=== PATIENT | female | born 2000 | race Caucasian/White ===

== ENCOUNTER 2024-01-09 11:38 | Emergency (ER) | payer OTHER, SELFPAY ==
[2024-01-09] VITALS (26 sets, daily range): BP systolic 116–170; BP diastolic 57–96; PULSE 76–127; RESP 12–28; TEMP 37.1; O2SAT 96–99; BMI 19.5
--- NOTE | 2024-01-09 11:49 | DI.RAD.S_ITS ---
PROCEDURE: XR CHEST 1V INDICATIONS: chest pain TECHNIQUE: One view of the chest was acquired. COMPARISON: None. FINDINGS: Surgical changes and devices: None. Lungs and pleura: Lungs are clear. No pleural effusions or pneumothorax. Mediastinum: Mediastinal contours appear normal. Heart size is normal. Bones and chest wall: No suspicious bony lesions. Overlying soft tissues appear unremarkable. IMPRESSION: No acute cardiopulmonary abnormality is seen. Dictated by: Torri Silva M.D. on 01/09/2024 at 15:33 Approved by: Torri Silva M.D. on 01/09/2024 at 15:35
--- NOTE | 2024-01-09 11:54 | EKG_ITS ---
[address] [address] Test Date: 2024-01-09 Pat Name: Ora Arizmendi Department: Room: Gender: Female Sign Writer Hand: MARYLOU : 2000 Requested By: Order Number: [id number] Reading MD: Anam Putnam MD Measurements Intervals [place] Rate: 103 P: 49 W[place]: 152 QRS: -24 QRSD: 90 T: 46 QT: 378 QTc: 495 Interpretive Statements Sinus tachycardia Electronically Signed On 01-10-2024 7:37:21 PDT by Anam Putnam MD
[2024-01-09 12:14] LABS: Add Manual Diff / Slide Review NO; Basophils Absolute Auto 0 /uL (0-100); Basophils Percent Auto 0.5 % (0-2); Eosinophils Absolute Auto 200 /uL (0-450); Eosinophils Percent Auto 3.8 % (2-4); Hematocrit 39.5 % (36-46); Hemoglobin 13.2 g/dL (12.0-16.0); Lymphocytes Absolute Auto 1700 /uL (1100-4500); Lymphocytes Percent Auto 39.1 % (25-40); Mean Corpuscular HGB Conc 33.3 % (30-36); Mean Corpuscular Hemoglobin 26.2 PG (26-34); Mean Corpuscular Volume 78.8 fL (80-100); Monocytes Absolute Auto 400 /uL (0-900); Monocytes Percent Auto 9.4 % (3-14); Neutrophils Absolute Auto 2000 /uL (1500-7000); Neutrophils Percent Auto 47.2 % (50-75); Platelet Count 172 X10^3/uL (150-400); Red Blood Cell Count 5.02 X10^6/uL (4.0-5.2); Red Cell Distribution Width 13.3 % (11.6-14.8); White Blood Cell Count 4.3 X10^3/uL (4.5-11.0)
[2024-01-09 12:16] LABS: Prothrombin Time 11.2 SECONDS (9.4-12.5)
[2024-01-09 12:18] LABS: PTT Partial Thromboplastin Tim 40 SECONDS (25.1-36.5)
[2024-01-09 12:22] LABS: Alanine Aminotransferase 39 IU/L (<35); Albumin 4.3 g/dL (3.5-5.0); Albumin Globulin Ratio 1.7 (1.0-2.8); Alkaline Phosphatase 96 U/L (38-126); Aspartate Aminotransferase 32 IU/L (14-36); BUN Creatinine Ratio 31.4 (6-22); Bilirubin Total 0.5 mg/dL (0.2-1.3); Blood Urea Nitrogen 11 mg/dL (7-17); C-Reactive Protein Quant < 0.5 mg/dL (<1.0); Calcium 9.4 mg/dL (8.4-10.2); Carbon Dioxide 23 mmol/L (22-32); Chloride 109 mmol/L (98-107); Creatine Kinase 39 U/L (30-135); Estimated Glomerular Filt Rate > 60 mL/min (>60); Globulin 2.6 g/dL (1.7-4.1); Glucose 99 mg/dL (70-100); HEMOLYSIS < 15 (0-50); Lipase 106 U/L (23-300); Magnesium 1.8 mg/dL (1.6-2.3); Sodium 139 mmol/L (137-145); Total Protein 6.9 g/dL (6.3-8.2)
[2024-01-09 12:31] LABS: Erythrocyte Sedimentation Rate 4 MM/HR (0-20); NT-proBNP (BNP-Adult 18+) 164 pg/mL (<125); Troponin I < 0.012 ng/mL (0.01-0.034)
--- NOTE | 2024-01-09 12:46 | ED.RECABL ---
HPI - Recheck/Abnormal Lab/Rx <Sheng Espinoza MD - Last Filed: 01/10/24 11:56> General Chief Complaint: Recheck/Abnormal Lab/Rx Stated Complaint: cardiac issues sent by [facility] Time Seen by Provider: 01/09/24 12:36 Source: patient Mode of arrival: Ambulatory History of Present Illness HPI narrative: Patient has history of Graves disease. Has been off of methimazole and propranolol for the past 4 years under the guidance of her provider. She has been doing well. However in the last 3 weeks she has had some dizziness and palpitations and feeling very tired. She has appointment with her provider in 2 weeks for this. No prior history of anemia. Denies . Heart rate will increase with any kind of movement she states. She has had some weight loss as well. Related Data Home Medications Medication Instructions Recorded Confirmed No Known Home Medications 01/09/24 01/09/24 Allergies Allergy/AdvReac Type Severity Reaction Status Date / Time ketorolac [From Toradol] Allergy Severe Anaphylaxis Verified 01/09/24 13:48 Review of Systems <Sheng Espinoza MD - Last Filed: 01/10/24 11:56> Review of Systems Narrative: GENERAL: negative chills, positive fatigue, malaise, negative fever, sweats. HEENT: negative sinus pain, ear pain, sore throat RESPIRATORY: negative dyspnea, cough CARDIOVASCULAR: negative chest pain, positive palpitations GASTROINTESTINAL: negative nausea, vomiting, abdominal pain : negative dysuria, frequency, hematuria MUSCULOSKELETAL: negative muscle or bony pain SKIN: negative rash, skin lesions NEUROLOGIC: negative weakness, numbness, positive dizziness ROS Unobtainable: All systems reviewed & are unremarkable except as noted in HPI and below Patient History <Sheng Espinoza MD - Last Filed: 01/10/24 11:56> Medical History IUD (intrauterine device) in place Social History Smoking Status: Current some day smoker Smoking Status: Current some day smoker alcohol intake frequency: other Alcohol type: other Substance Use Type: does not use Exam <Sheng Espinoza MD - Last Filed: 01/10/24 11:56> Narrative Exam Narrative: GENERAL: in no distress, not toxic not dyspneic HEAD: Normocephalic. EYES: Pupils equal round ENT: Mucous membranes moist. NECK: Trachea midline. No thyromegaly CARDIOVASCULAR: Regular rate and rhythm, tachycardia RESPIRATORY: Clear to auscultation. Breath sounds equal bilaterally. No wheezes, rales, or rhonchi. GASTROINTESTINAL: Abdomen soft, non-tender EXTREMITIES: No gross deformities. BACK: No flank tenderness. NEURO: AOx4. SKIN: Warm and dry PSYCH: Not anxious, is cooperative Initial Vital Signs Initial Vital Signs: Vital Signs Temperature 98.8 F 01/09/24 11:44 Pulse Rate 112 H 01/09/24 11:44 Respiratory Rate 16 01/09/24 11:44 Blood Pressure 120/79 01/09/24 11:44 Pulse Oximetry 98 01/09/24 11:44 Oxygen Delivery Method Room Air 01/09/24 11:44 <Yesenia Marquez DO - Last Filed: 01/10/24 06:43> Initial Vital Signs Initial Vital Signs: Vital Signs Temperature 98.8 F 01/09/24 11:44 Pulse Rate 112 H 01/09/24 11:44 Respiratory Rate 16 01/09/24 11:44 Blood Pressure 120/79 01/09/24 11:44 Pulse Oximetry 98 01/09/24 11:44 Oxygen Delivery Method Room Air 01/09/24 11:44 Course <Sheng Espinoza MD - Last Filed: 01/10/24 11:56> Orders Ordered: Discontinued Medications Sodium Chloride (Normal Saline 0.9%) 1,000 mls @ 1,000 mls/hr IV BOLUS ONE Stop: 01/09/24 13:45 Last Infusion: 01/09/24 13:57 Dose: Infused Documented By: Admin: 01/09/24 12:48 Dose: 1,000 mls/hr Documented By: TEMO Sodium Chloride (Normal Saline 0.9%) 1,000 mls @ 150 mls/hr IV CONT USHA Last Infusion: 01/10/24 03:09 Dose: Infused Documented By: Admin: 01/09/24 20:12 Dose: 150 mls/hr Documented By: LB Sodium Chloride (Normal Saline 0.9%) 1,000 mls @ 150 mls/hr IV CONT USHA Last Admin: 01/10/24 03:15 Dose: 150 mls/hr Documented By: LB Lorazepam (Lorazepam 2 Mg/Ml Inj) 0.5 mg IV NOW ONE Stop: 01/09/24 17:58 Last Admin: 01/09/24 18:07 Dose: 0.5 mg Documented By: LISANDRO Meclizine HCl (Meclizine Hcl 12.5 Mg Tablet) 25 mg PO NOW ONE Stop: 01/10/24 07:19 Last Admin: 01/10/24 07:23 Dose: 25 mg Documented By: LISANDRO Propranolol HCl (Propranolol 10 Mg Tablet) 80 mg PO NOW ONE Stop: 01/09/24 18:09 Last Admin: 01/09/24 18:16 Dose: 80 mg Documented By: LISANDRO Propranolol HCl (Propranolol 10 Mg Tablet) 80 mg PO Q6H USHA Last Admin: 01/10/24 07:24 Dose: 80 mg Documented By: Admin: 01/10/24 00:59 Dose: 80 mg Documented By: LB Vital Signs Vital signs: Vital Signs - 8 hr 01/10/24 04:00 01/10/24 04:00 01/10/24 04:00 Pulse Rate 77 77 Respiratory Rate 18 19 Blood Pressure 103/54 L 103/54 L Pulse Oximetry 98 Oxygen Delivery Method Room Air 01/10/24 04:30 01/10/24 04:30 01/10/24 04:30 Pulse Rate 84 84 Respiratory Rate 16 21 Blood Pressure 98/54 L 98/54 L Pulse Oximetry 97 Oxygen Delivery Method Room Air 01/10/24 05:00 01/10/24 05:00 01/10/24 05:00 Pulse Rate 87 87 Respiratory Rate 14 17 Blood Pressure 105/65 105/65 Pulse Oximetry 98 Oxygen Delivery Method Room Air 01/10/24 05:30 01/10/24 05:30 01/10/24 06:00 Pulse Rate 82 80 Respiratory Rate 14 19 Blood Pressure 107/62 Pulse Oximetry Oxygen Delivery Method 01/10/24 06:00 01/10/24 06:30 01/10/24 06:30 Pulse Rate 82 87 Respiratory Rate 16 29 H Blood Pressure 106/60 109/70 Pulse Oximetry 97 Oxygen Delivery Method Room Air 01/10/24 07:00 01/10/24 07:00 01/10/24 07:11 Pulse Rate 93 H Respiratory Rate 18 Blood Pressure 117/63 104/65 Pulse Oximetry 98 Oxygen Delivery Method <Yesenia Marquez, - Last Filed: 01/10/24 06:43> Orders Ordered: Discontinued Medications Sodium Chloride (Normal Saline 0.9%) 1,000 mls @ 1,000 mls/hr IV BOLUS ONE Stop: 01/09/24 13:45 Last Infusion: 01/09/24 13:57 Dose: Infused Documented By: Admin: 01/09/24 12:48 Dose: 1,000 mls/hr Documented By: TEMO Sodium Chloride (Normal Saline 0.9%) 1,000 mls @ 150 mls/hr IV CONT USHA Last Infusion: 01/10/24 03:09 Dose: Infused Documented By: Admin: 01/09/24 20:12 Dose: 150 mls/hr Documented By: LB Sodium Chloride (Normal Saline 0.9%) 1,000 mls @ 150 mls/hr IV CONT USHA Last Admin: 01/10/24 03:15 Dose: 150 mls/hr Documented By: LB Lorazepam (Lorazepam 2 Mg/Ml Inj) 0.5 mg IV NOW ONE Stop: 01/09/24 17:58 Last Admin: 01/09/24 18:07 Dose: 0.5 mg Documented By: LISANDRO Meclizine HCl (Meclizine Hcl 12.5 Mg Tablet) 25 mg PO NOW ONE Stop: 01/10/24 07:19 Last Admin: 01/10/24 07:23 Dose: 25 mg Documented By: LISANDRO Propranolol HCl (Propranolol 10 Mg Tablet) 80 mg PO NOW ONE Stop: 01/09/24 18:09 Last Admin: 01/09/24 18:16 Dose: 80 mg Documented By: LISANDRO Propranolol HCl (Propranolol 10 Mg Tablet) 80 mg PO Q6H [facility] Last Admin: 01/10/24 07:24 Dose: 80 mg Documented By: Admin: 01/10/24 00:59 Dose: 80 mg Documented By: LB Vital Signs Vital signs: Vital Signs - 8 hr 01/10/24 04:00 01/10/24 04:00 01/10/24 04:00 Pulse Rate 77 77 Respiratory Rate 18 19 Blood Pressure 103/54 L 103/54 L Pulse Oximetry 98 Oxygen Delivery Method Room Air 01/10/24 04:30 01/10/24 04:30 01/10/24 04:30 Pulse Rate 84 84 Respiratory Rate 16 21 Blood Pressure 98/54 L 98/54 L Pulse Oximetry 97 Oxygen Delivery Method Room Air 01/10/24 05:00 01/10/24 05:00 01/10/24 05:00 Pulse Rate 87 87 Respiratory Rate 14 17 Blood Pressure 105/65 105/65 Pulse Oximetry 98 Oxygen Delivery Method Room Air 01/10/24 05:30 01/10/24 05:30 01/10/24 06:00 Pulse Rate 82 80 Respiratory Rate 14 19 Blood Pressure 107/62 Pulse Oximetry Oxygen Delivery Method 01/10/24 06:00 01/10/24 06:30 01/10/24 06:30 Pulse Rate 82 87 Respiratory Rate 16 29 H Blood Pressure 106/60 109/70 Pulse Oximetry 97 Oxygen Delivery Method Room Air 01/10/24 07:00 01/10/24 07:00 01/10/24 07:11 Pulse Rate 93 H Respiratory Rate 18 Blood Pressure 117/63 104/65 Pulse Oximetry 98 Oxygen Delivery Method MDM - Recheck/Abnormal Lab/Rx <Sheng Espinoza MD - Last Filed: 01/10/24 11:56> Lab Data 01/09/24 11:59 01/09/24 11:59 Labs: Lab Results 01/09/24 Range/Units 11:59 WBC 4.3 L (4.5-11.0) X10^3/uL RBC 5.02 (4.0-5.2) X10^6/uL Hgb 13.2 (12.0-16.0) g/dL Hct 39.5 (36-46) % MCV 78.8 L (80-100) fL MCH 26.2 (26-34) PG MCHC 33.3 (30-36) % RDW 13.3 (11.6-14.8) % Plt Count 172 (150-400) X10^3/uL Neut % (Auto) 47.2 L (50-75) % Lymph % (Auto) 39.1 (25-40) % [place]royo % (Auto) 9.4 (3-14) % Eos % (Auto) 3.8 (2-4) % Baso % (Auto) 0.5 (0-2) % Neut # (Auto) 2000 (4993-9732) /uL Lymph # (Auto) 1700 (5201-4372) /uL [place] # (Auto) 400 (0-900) /uL Eos # (Auto) 200 (0-450) /uL Baso # (Auto) 0 (0-100) /uL ESR 4 (0-20) MM/HR PT 11.2 (9.4-12.5) SECONDS INR 1.0 (0.9-1.3) APTT 40 H (25.1-36.5) SECONDS D-Dimer 1071 H (<500) ng/ml Sodium 139 (137-145) mmol/L Potassium 4.0 (3.4-5.1) mmol/L Chloride 109 H (98-107) mmol/L Carbon Dioxide 23 (22-32) mmol/L BUN 11 (7-17) mg/dL Creatinine 0.35 L (0.52-1.04) mg/dL Estimated GFR > 60 (>60) mL/min BUN/Creatinine Ratio 31.4 H (6-22) Glucose 99 (70-100) mg/dL Calcium 9.4 (8.4-10.2) mg/dL Magnesium 1.8 (1.6-2.3) mg/dL Total Bilirubin 0.5 (0.2-1.3) mg/dL AST 32 (14-36) IU/L ALT 39 H (<35) IU/L Alkaline Phosphatase 96 (38-126) U/L Total Creatine Kinase 39 (30-135) U/L Troponin I < 0.012 (0.01-0.034) ng/mL C-Reactive Protein < 0.5 (<1.0) mg/dL NT-Pro-B Natriuret Pep 164 H (<125) pg/mL Total Protein 6.9 (6.3-8.2) g/dL Albumin 4.3 (3.5-5.0) g/dL Globulin 2.6 (1.7-4.1) g/dL Albumin/Globulin Ratio 1.7 (1.0-2.8) Lipase 106 (23-300) U/L TSH < 0.02 L (0.47-4.68) uIU/mL Free T4 4.56 H (0.78-2.19) ng/dL Point of Care Testing Test Results Negative Imaging Data Chest x-ray: Radiologist's Impression: [address] [address] XRay Report Signed Patient: Ora Arizmendi MR#: [id number] : 2000 Acct:[id number] Age/Sex: 23 / F Date of Service: 01/09/24 Loc: ED Accession Number: [id number] Procedure: XR chest 1V Ordering Provider: Sheng Espinoza MD PROCEDURE: XR CHEST 1V INDICATIONS: chest pain TECHNIQUE: One view of the chest was acquired. COMPARISON: None. FINDINGS: Surgical changes and devices: None. Lungs and pleura: Lungs are clear. No pleural effusions or pneumothorax. Mediastinum: Mediastinal contours appear normal. Heart size is normal. Bones and chest wall: No suspicious bony lesions. Overlying soft tissues appear unremarkable. IMPRESSION: No acute cardiopulmonary abnormality is seen. Dictated by: Torri Silva M.D. on 01/09/2024 at 15:33 Approved by: Torri Silva M.D. on 01/09/2024 at 15:35 CT scan - chest: Radiologist's Impression: [address] [address] [address] Scan Report Signed Patient: Ora Arizmendi MR#: [id number] : 2000 Acct:[id number] Age/Sex: 23 / F Date of Service: 01/09/24 Loc: ED Accession Number: [id number] Procedure: CT angio chest PE protocol Ordering Provider: Sheng Espinoza MD PROCEDURE: CT ANGIO CHEST PE PROTOCOL INDICATIONS: tachycardia / + Dimer TECHNIQUE: After the administration of intravenous contrast, 2 mm thick sections acquired from the pulmonary apices to the posterior costophrenic angles. 3-dimensional maximum intensity projection (MIP) coronal and sagittal reformats were then acquired through the thorax. For radiation dose reduction, the following was used: automated exposure control, adjustment of mA and/or kV according to patient size. COMPARISON: None. FINDINGS: Image quality: Suboptimal bolus timing, slightly delayed. Pulmonary arteries: Pulmonary arteries are normal in size, and demonstrate no intraluminal filling defects to suggest central pulmonary embolism. Somewhat suboptimal timing. However, no large or moderate pulmonary emboli. Lower Neck: No enlarged lymph nodes. Thyroid: No thyroid nodules which require sonographic follow up, per consensus guidelines. Thyroid is somewhat diffusely enlarged. Axillae: No enlarged lymph nodes. Chest Wall: Unremarkable. Bones: Unremarkable. Lungs and Pleura: No pneumothorax or pleural effusions. No consolidation or suspicious nodules. Heart: Heart size is normal. No pericardial effusion. Thoracic Vessels: No aortic aneurysm. Mediastinum and [place]: No enlarged lymph nodes. There is prominent anterior mediastinal tissue with a typical shape of thymic tissue. Consider thymoma. Esophagus: No wall thickening. No hiatal hernia. Upper Abdomen: Visualized upper abdomen solid organs and bowel loops appear normal. IMPRESSION: 1. Although there is somewhat suboptimal timing. No large or moderate size pulmonary emboli are identified. 2. Clear lung ball. 3. Abnormal increased anterior mediastinal tissue, most likely representing thymic tissue. Consider thymoma or other etiologies of anterior mediastinal mass. 3. Thyromegaly. Dictated by: Archie Guardado M.D. on 01/09/2024 at 16:41 Approved by: Archie Guardado M.D. on 01/09/2024 at 16:50 [facility] Narrative Medical decision making narrative: Patient has history of Graves disease. Has been off of methimazole and propranolol for the past 4 years under the guidance of her provider. She has been doing well. However in the last 3 weeks she has had some dizziness and palpitations and feeling very tired. She has appointment with her provider in 2 weeks for this. No prior history of anemia. Denies . Heart rate will increase with any kind of movement she states. She has had some weight loss as well. After history and exam, exam is reassuring, does get tachycardia with sitting up. CBC CMP TSH troponin EKG magnesium normal saline D-dimer chest x-ray [facility] Medical records reviewed: No recent visits for this complaint Differential considered: Includes but not limited to, thyroid storm hyperthyroidism PE dehydration anemia arrhythmia At this time I do not believe patient is in thyroid storm. No fever no agitation. No diarrhea no vomiting no altered mental status. Lab Test results independently reviewed as above. Pertinent findings: WBC 4.3 hemoglobin 13.2 INR is 1.0 ESR for sodium 139 potassium 4.0 BUN 11 creatinine 0.35 glucose 99 magnesium 1.8 calcium 9.4 AST 32 ALT 39 troponin less than 0.012 BNP 164 D-dimer 1071 TSH less than 0.02 free T4 4.56 Independently reviewed EKG sinus tachycardia rate [address] elevation or depression, otherwise normal EKG Imaging studies independently reviewed: Chest x-ray no acute finding, CT chest no acute finding Consultations: 4:[address] Bustos, hospitalist here at [facility]. Recommends contacting Endocrinology with [facility] or [facility]. Will need Endocrinology Services. We do not have Endocrinology here. Patient does need methimazole but need proper dosing with endocrinology. 6:11 p.m.. Spoke with [facility], Dr. Silva, she can follow in consult at [facility] if admitted hospitalist. She recommends starting propranolol 80 mg every 6 hours by mouth. We do not have methimazole. Treatments: Re-evaluations: 4:10 p.m.. Updated patient and results so far. CT chest pending results. However awaiting call back from endocrinology services for medication to start and disposition. At this time patient is not altered. No distress. 5:00 p.m.. Patient is starting to feel anxious and jittery. He has not altered but not feeling well. 5:45 p.m.. Patient is a little bit more calm now but still tachycardic. Discussion: 6:00 p.m.. Alexis: Sign out to Dr Marquez, patient could be entering thyroid storm. We do not have methimazole. Patient is aware. We will need to transfer. There is no endocrinology consult available for just over the phone. We will need to transfer for inpatient. Possibly [facility]. Propranolol can be given 80 mg every 6 hours after my discussion with endocrinology. Awaiting call back from [facility] hospitalist. Diagnosis: Hyperthyroidism <Yesenia Marquez DO - Last Filed: 01/10/24 06:43> Lab Data Labs: Lab Results 01/09/24 Range/Units 11:59 WBC 4.3 L (4.5-11.0) X10^3/uL RBC 5.02 (4.0-5.2) X10^6/uL Hgb 13.2 (12.0-16.0) g/dL Hct 39.5 (36-46) % MCV 78.8 L (80-100) fL MCH 26.2 (26-34) PG MCHC 33.3 (30-36) % RDW 13.3 (11.6-14.8) % Plt Count 172 (150-400) X10^3/uL Neut % (Auto) 47.2 L (50-75) % Lymph % (Auto) 39.1 (25-40) % [place]royo % (Auto) 9.4 (3-14) % Eos % (Auto) 3.8 (2-4) % Baso % (Auto) 0.5 (0-2) % Neut # (Auto) 2000 (3996-8065) /uL Lymph # (Auto) 1700 (0980-2992) /uL [place] # (Auto) 400 (0-900) /uL Eos # (Auto) 200 (0-450) /uL Baso # (Auto) 0 (0-100) /uL ESR 4 (0-20) MM/HR PT 11.2 (9.4-12.5) SECONDS INR 1.0 (0.9-1.3) APTT 40 H (25.1-36.5) SECONDS D-Dimer 1071 H (<500) ng/ml Sodium 139 (137-145) mmol/L Potassium 4.0 (3.4-5.1) mmol/L Chloride 109 H (98-107) mmol/L Carbon Dioxide 23 (22-32) mmol/L BUN 11 (7-17) mg/dL Creatinine 0.35 L (0.52-1.04) mg/dL Estimated GFR > 60 (>60) mL/min BUN/Creatinine Ratio 31.4 H (6-22) Glucose 99 (70-100) mg/dL Calcium 9.4 (8.4-10.2) mg/dL Magnesium 1.8 (1.6-2.3) mg/dL Total Bilirubin 0.5 (0.2-1.3) mg/dL AST 32 (14-36) IU/L ALT 39 H (<35) IU/L Alkaline Phosphatase 96 (38-126) U/L Total Creatine Kinase 39 (30-135) U/L Troponin I < 0.012 (0.01-0.034) ng/mL C-Reactive Protein < 0.5 (<1.0) mg/dL NT-Pro-B Natriuret Pep 164 H (<125) pg/mL Total Protein 6.9 (6.3-8.2) g/dL Albumin 4.3 (3.5-5.0) g/dL Globulin 2.6 (1.7-4.1) g/dL Albumin/Globulin Ratio 1.7 (1.0-2.8) Lipase 106 (23-300) U/L TSH < 0.02 L (0.47-4.68) uIU/mL Free T4 4.56 H (0.78-2.19) ng/dL Point of Care Testing Test Results Negative [facility] Narrative Medical decision making narrative: Patient has history of Graves disease. Has been off of methimazole and propranolol for the past 4 years under the guidance of her provider. She has been doing well. However in the last 3 weeks she has had some dizziness and palpitations and feeling very tired. She has appointment with her provider in 2 weeks for this. No prior history of anemia. Denies . Heart rate will increase with any kind of movement she states. She has had some weight loss as well. After history and exam, exam is reassuring, does get tachycardia with sitting up. CBC CMP TSH troponin EKG magnesium normal saline D-dimer chest x-ray [facility] Medical records reviewed: No recent visits for this complaint Differential considered: Includes but not limited to, thyroid storm hyperthyroidism PE dehydration anemia arrhythmia At this time I do not believe patient is in thyroid storm. No fever no agitation. No diarrhea no vomiting no altered mental status. Lab Test results independently reviewed as above. Pertinent findings: WBC 4.3 hemoglobin 13.2 INR is 1.0 ESR for sodium 139 potassium 4.0 BUN 11 creatinine 0.35 glucose 99 magnesium 1.8 calcium 9.4 AST 32 ALT 39 troponin less than 0.012 BNP 164 D-dimer 1071 TSH less than 0.02 free T4 4.56 Independently reviewed EKG sinus tachycardia rate [address] elevation or depression, otherwise normal EKG Imaging studies independently reviewed: Chest x-ray no acute finding, CT chest no acute finding Consultations: 4:[address] Bustos, hospitalist here at [facility]. Recommends contacting Endocrinology with [facility] or [facility]. Will need Endocrinology Services. We do not have Endocrinology here. Patient does need methimazole but need proper dosing with endocrinology. 6:11 p.m.. Spoke with [facility], Dr. Silva, she can follow in consult at [facility] if admitted hospitalist. She recommends starting propranolol 80 mg every 6 hours by mouth. We do not have methimazole. Treatments: Re-evaluations: 4:10 p.m.. Updated patient and results so far. CT chest pending results. However awaiting call back from endocrinology services for medication to start and disposition. At this time patient is not altered. No distress. 5:00 p.m.. Patient is starting to feel anxious and jittery. He has not altered but not feeling well. 5:45 p.m.. Patient is a little bit more calm now but still tachycardic. Discussion: 6:00 p.m.. Alexis: Sign out to Dr Marquez, patient could be entering thyroid storm. We do not have methimazole. Patient is aware. We will need to transfer. There is no endocrinology consult available for just over the phone. We will need to transfer for inpatient. Possibly [facility]. Propranolol can be given 80 mg every 6 hours after my discussion with endocrinology. Awaiting call back from [facility] hospitalist. Diagnosis: Hyperthyroidism 01/09/2024 Dr. Marquez: Patient signed out to myself patient seen and evaluated by myself. Dr. Carlisle reviewed recommendations from endocrinology we do not have methimazole available but can get propranolol 80 mg every 6 hours. Plan for transfer awaiting call back from hospitalist. Patient has been tachycardic, afebrile. Labs reflect hyperthyroidism likely early thyroid storm. Patient on exam is very thin almost gone, tachycardic, pale but otherwise well-appearing. She has received her oral propranolol. She is aware of the current plan. States no prescription medications currently had history of appendectomy states allergic to ketorolac. Does use tobacco at times, no regular alcohol or recreational drugs. Spoke with Dr. Guidry at [facility], hospitalist who accepts for transfer. Awaiting bed assignment. Related patient's recent history, HPI and ROS as well as exam, she has been alert appropriate been tachycardic but otherwise hemodynamically stable. He is received fluids is on maintenance fluids and received propranolol p.o. as well as a 1 time dose of lorazepam. Discharge Plan Departure Patient Disposition: [facility] Clinical Impression: Hyperthyroidism Prescriptions: No Action No Known Home Medications
[2024-01-09] MEDS: SODIUM CHLORIDE 0.9% 1,000 ML 1000 ML IV (12:48)
[2024-01-09 12:56] LABS: TSH w/ Reflex to FT4 < 0.02 uIU/mL (0.47-4.68)
[2024-01-09 13:03] LABS: D Dimer 1071 ng/ml (<500)
[2024-01-09 13:21] LABS: Free T4, Direct Thyroxine 4.56 ng/dL (0.78-2.19)
--- NOTE | 2024-01-09 13:46 | DI.CT.S_ITS ---
PROCEDURE: CT ANGIO CHEST PE PROTOCOL INDICATIONS: tachycardia / + Dimer TECHNIQUE: After the administration of intravenous contrast, 2 mm thick sections acquired from the pulmonary apices to the posterior costophrenic angles. 3-dimensional maximum intensity projection (MIP) coronal and sagittal reformats were then acquired through the thorax. For radiation dose reduction, the following was used: automated exposure control, adjustment of mA and/or kV according to patient size. COMPARISON: None. FINDINGS: Image quality: Suboptimal bolus timing, slightly delayed. Pulmonary arteries: Pulmonary arteries are normal in size, and demonstrate no intraluminal filling defects to suggest central pulmonary embolism. Somewhat suboptimal timing. However, no large or moderate pulmonary emboli. Lower Neck: No enlarged lymph nodes. Thyroid: No thyroid nodules which require sonographic follow up, per consensus guidelines. Thyroid is somewhat diffusely enlarged. Axillae: No enlarged lymph nodes. Chest Wall: Unremarkable. Bones: Unremarkable. Lungs and Pleura: No pneumothorax or pleural effusions. No consolidation or suspicious nodules. Heart: Heart size is normal. No pericardial effusion. Thoracic Vessels: No aortic aneurysm. Mediastinum and Ursula: No enlarged lymph nodes. There is prominent anterior mediastinal tissue with a typical shape of thymic tissue. Consider thymoma. Esophagus: No wall thickening. No hiatal hernia. Upper Abdomen: Visualized upper abdomen solid organs and bowel loops appear normal. IMPRESSION: 1. Although there is somewhat suboptimal timing. No large or moderate size pulmonary emboli are identified. 2. Clear lung ball. 3. Abnormal increased anterior mediastinal tissue, most likely representing thymic tissue. Consider thymoma or other etiologies of anterior mediastinal mass. 3. Thyromegaly. Dictated by: Archie Guardado M.D. on 01/09/2024 at 16:41 Approved by: Archie Guardado M.D. on 01/09/2024 at 16:50
--- NOTE | 2024-01-09 17:46 | PC.NURSE ---
Pt sitting up in bed and a&ox4. states that she is feeling anxious and worked up. Pt also states that she feels like her heart is beating out of her chest. Dr taran meza. Denies VENTURA, cp.
[2024-01-09] MEDS: LORazepam 2 MG/ML INJ 0.5 MG IV (18:07)
[2024-01-09] MEDS: PROPRANOLOL 10 MG TABLET 80 MG PO (18:16)
[2024-01-09] MEDS: SODIUM CHLORIDE 0.9% 1,000 ML 150 ML IV (20:12)
--- NOTE | 2024-01-09 22:09 | PC.NURSE ---
Patient updated on transfer to [facility] and transport will be set-up for 6:50am. Patient placed into hospital bed for comfort, denies any needs at the moment. Call button within reach.
[2024-01-10] VITALS (16 sets, daily range): BP systolic 95–125; BP diastolic 54–71; PULSE 77–93; RESP 14–29; O2SAT 96–98
[2024-01-10] MEDS: PROPRANOLOL 10 MG TABLET 80 MG PO ×2 (00:59→07:24)
[2024-01-10] MEDS: SODIUM CHLORIDE 0.9% 1,000 ML 150 ML IV (03:15)
--- NOTE | 2024-01-10 05:26 | PC.NURSE ---
Report called to SETH Francisco at [facility] ([phone] ext [phone]). Transport ETA 0630.
[2024-01-10] MEDS: MECLIZINE HCL 12.5 MG TABLET 25 MG PO (07:23)
== END 2024-01-10 07:14 | disposition short-term general hospital (02) ==
PROVIDERS: Emergency Medicine; Emergency Provider Emergency Medicine
DX: E05.00 Thyrotoxicosis with diffuse goiter without thyrotoxic crisis or storm (principal); R07.9 Chest pain, unspecified; R00.0 Tachycardia, unspecified
CPT/HCPCS: 36415; 71045; 71275; 80053; 81025; 82550; 83690; 83735; 83880; 84439; 84443; 84484; 85025; 85379; 85610; 85651; 85730; 86140; 93005; 93010; 96361; 96374; 99284; J2060; Q9967

== ENCOUNTER 2024-08-24 11:56 | Emergency (ER) | payer OTHER, SELFPAY ==
[2024-08-24] VITALS (7 sets, daily range): BP systolic 108–132; BP diastolic 78–91; PULSE 58–95; RESP 10–18; TEMP 36.2; O2SAT 95–97; BMI 21.9
--- NOTE | 2024-08-24 12:05 | DI.RAD.S_ITS ---
PROCEDURE: XR CHEST 1V INDICATIONS: chest pain TECHNIQUE: One view of the chest was acquired. COMPARISON: [facility], CR, XR CHEST 1V, 01/09/2024, 12:05. FINDINGS: Surgical changes and devices: None. Lungs and pleura: Lungs are clear. No pleural effusions or pneumothorax. Mediastinum: Mediastinal contours appear normal. Heart size is normal. Bones and chest wall: No suspicious bony lesions. Overlying soft tissues appear unremarkable. IMPRESSION: No acute cardiopulmonary abnormality is seen. Dictated by: Freddy Crandall M.D. on 08/24/2024 at 12:34 Approved by: Freddy Crandall M.D. on 08/24/2024 at 12:35
--- NOTE | 2024-08-24 12:13 | EKG_ITS ---
[address] [address] Test Date: 2024-08-24 Pat Name: Ora Arizmendi Department: [facility] Room: Gender: Female Plant Operations Coordinator: GRAHAM : 2000 Requested By: Order Number: [id number] Reading MD: Bartolome Cruz Measurements Intervals [place] Rate: 66 P: 53 [place]: 136 QRS: -39 QRSD: 88 T: 35 QT: 412 QTc: 431 Interpretive Statements Normal sinus rhythm with sinus arrhythmia Left axis deviation Electronically Signed On 08-24-2024 18:25:56 PDT by Bartolome Cruz
[2024-08-24 12:35] LABS: Add Manual Diff / Slide Review NO; Basophils Absolute Auto 0 /uL (0-100); Basophils Percent Auto 0.4 % (0-2); Eosinophils Absolute Auto 100 /uL (0-450); Eosinophils Percent Auto 2.6 % (2-4); Hematocrit 42.7 % (36-46); Hemoglobin 14.2 g/dL (12.0-16.0); Lymphocytes Absolute Auto 1600 /uL (1100-4500); Lymphocytes Percent Auto 32.3 % (25-40); Mean Corpuscular HGB Conc 33.3 % (30-36); Mean Corpuscular Hemoglobin 28.6 PG (26-34); Mean Corpuscular Volume 86.1 fL (80-100); Monocytes Absolute Auto 300 /uL (0-900); Monocytes Percent Auto 6.4 % (3-14); Neutrophils Absolute Auto 2800 /uL (1500-7000); Neutrophils Percent Auto 58.3 % (50-75); Platelet Count 187 X10^3/uL (150-400); Red Blood Cell Count 4.96 X10^6/uL (4.0-5.2); Red Cell Distribution Width 14.3 % (11.6-14.8); White Blood Cell Count 4.9 X10^3/uL (4.5-11.0)
[2024-08-24] MEDS: ONDANSETRON 4 MG/2 ML INJ IV (12:38)
[2024-08-24 12:41] LABS: INR 1.1 (0.9-1.3); Prothrombin Time 12.8 SECONDS (9.4-12.5)
[2024-08-24 12:43] LABS: PTT Partial Thromboplastin Tim 41 SECONDS (25.1-36.5)
[2024-08-24 12:46] LABS: Alanine Aminotransferase 17 IU/L (<35); Albumin 4.8 g/dL (3.5-5.0); Albumin Globulin Ratio 1.7 (1.0-2.8); Alkaline Phosphatase 51 U/L (38-126); Aspartate Aminotransferase 27 IU/L (14-36); Blood Urea Nitrogen 13 mg/dL (7-17); Calcium 9.7 mg/dL (8.4-10.2); Carbon Dioxide 23 mmol/L (22-32); Chloride 106 mmol/L (98-107); Creatine Kinase 39 U/L (30-135); Estimated Glomerular Filt Rate > 60 mL/min (>60); Globulin 2.8 g/dL (1.7-4.1); Glucose 96 mg/dL (70-100); HEMOLYSIS 22 (0-50); Lipase 65 U/L (23-300); Magnesium 1.8 mg/dL (1.6-2.3); Potassium 3.9 mmol/L (3.4-5.1); Sodium 139 mmol/L (137-145); Total Protein 7.6 g/dL (6.3-8.2)
[2024-08-24 12:57] LABS: NT-proBNP (BNP-Adult 18+) 52 pg/mL (<125); Troponin I < 0.012 ng/mL (0.01-0.034)
[2024-08-24 13:57] LABS: Bacteria Urine Occasional (0-1); Mucus Urine 3+ (Negative); RBC Urine 0-1/HPF (0-5/HPF); Squamous Epithelial Cell Urine 1-5 /HPF (0-5/HPF); Urine Volume 10mL (spun); WBC Urine 1-5/HPF (0-5/HPF)
[2024-08-24 14:01] LABS: Free T4, Direct Thyroxine 1.45 ng/dL (0.78-2.19)
--- NOTE | 2024-08-24 14:28 | ED_ITS ---
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 She has been on levothyroxine since February. Patient does not take any daily medications otherwise. States that she has had nausea particularly with food for the past several weeks has had decreased appetite because of this. She states no vomiting. No fevers or chills. No chest pain or shortness of breath. Has been mildly constipated, no diarrhea. No black or bloody stools. Notes a little bit of epigastric discomfort times but not really painful. More of nausea. Denies any urinary symptoms. No new swelling of extremities. She was recently has a little bit of dizziness and headache and she had some more restless leg type symptoms generally achiness and burning sensation like she needed to move her legs at nighttime. She had similar symptoms in the past when she was and that just started last night. Patient states she has not had her levothyroxine adjusted since placement 100 mcg. She has had prior appendectomy, wisdom teeth as well as her thyroidectomy. States allergies to PTU, methimazole and ketorolac. No tobacco, alcohol or recreational drugs. Tried to get appointment with her primary care but it was unable. Has not been able to follow up with endocrinology or her surgeon. She feels like her symptoms from when she was hyperthyroid disease are returning. Related Data Previous Rx's Medication Instructions Recorded famotidine 40 mg tablet (Pepcid) 40 mg PO DAILY #30 tabs 08/24/24 ondansetron 4 mg disintegrating 4 mg PO Q6H PRN nausea and 08/24/24 tablet vomiting #10 tabs Allergies Allergy/AdvReac Type Severity Reaction Status Date / Time ketorolac [From Toradol] Allergy Severe Anaphylaxis Verified 01/09/24 13:48 Review of Systems Review of Systems ROS Unobtainable: All systems reviewed & are unremarkable except as noted in HPI and below Patient History Medical History IUD (intrauterine device) in place Social History Smoking Status: Former smoker Smoking Status: Former smoker alcohol intake frequency: other Alcohol type: other Exam Narrative Exam Narrative: GENERAL: Alert and oriented x three, thin female in mild distress HEENT: Head normocephalic, atraumatic, EOMI, pupils reactive, face symmetric, moist mucous membranes NECK: Supple, full range of motion CARDIOVASCULAR: Regular rate and rhythm without murmurs, rubs or gallops. No JVD. No edema bilateral lower extremities. RESPIRATORY: Breath sounds equal bilaterally, no wheezes rales or rhonchi. ABDOMEN: Soft, nontender. Normoactive bowel sounds all 4 quadrants. No guarding or rebound, rigidity, no mass : No CVA tenderness EXTREMITIES: Normal range of motion, no clubbing or edema. Neurovascularly intact NEUROLOGICAL: Cranial nerves II through XII grossly intact. Moving all extremities. No tremor. SKIN: Warm, dry, no petechiae, no rashes or lesions. Initial Vital Signs Initial Vital Signs: Vital Signs Temperature 97.1 F L 08/24/24 11:58 Pulse Rate 95 H 08/24/24 11:58 Respiratory Rate 18 08/24/24 11:58 Blood Pressure 132/91 H 08/24/24 11:58 Pulse Oximetry 97 08/24/24 11:58 Oxygen Delivery Method Room Air 08/24/24 11:58 Course Orders Ordered: Discontinued Medications Ondansetron HCl (Ondansetron 4 Mg/2 Ml Inj) 4 mg IV NOW PRN PRN Reason: Nausea And Vomiting Last Admin: 08/24/24 12:38 Dose: 4 mg Documented By: SANJIV Ondansetron HCl (Ondansetron 4 Mg Odt) 4 mg SL NOW PRN PRN Reason: Nausea And Vomiting Vital Signs Vital signs: Vital Signs - 8 hr 08/24/24 11:58 08/24/24 12:07 08/24/24 12:26 Temperature 97.1 F L Pulse Rate 95 H 63 Respiratory Rate 18 Blood Pressure 132/91 H 124/78 Pulse Oximetry 97 95 Oxygen Delivery Method Room Air 08/24/24 12:26 08/24/24 12:30 08/24/24 12:30 Temperature Pulse Rate 67 69 Respiratory Rate 12 12 Blood Pressure 120/83 Pulse Oximetry 95 96 Oxygen Delivery Method 08/24/24 13:00 08/24/24 13:00 08/24/24 13:30 Temperature Pulse Rate 58 L Respiratory Rate 15 Blood Pressure 116/78 108/78 Pulse Oximetry 96 Oxygen Delivery Method 08/24/24 13:30 Temperature Pulse Rate 58 L Respiratory Rate 10 L Blood Pressure Pulse Oximetry 97 Oxygen Delivery Method MDM - Nausea/Vomiting/Diarrhea Lab Data 08/24/24 12:23 08/24/24 12:23 Labs: Lab Results 08/24/24 08/24/24 Range/Units 12:23 13:37 WBC 4.9 (4.5-11.0) X10^3/uL RBC 4.96 (4.0-5.2) X10^6/uL Hgb 14.2 (12.0-16.0) g/dL Hct 42.7 (36-46) % MCV 86.1 (80-100) fL MCH 28.6 (26-34) PG MCHC 33.3 (30-36) % RDW 14.3 (11.6-14.8) % Plt Count 187 (150-400) X10^3/uL Neut % (Auto) 58.3 (50-75) % Lymph % (Auto) 32.3 (25-40) % Hendry % (Auto) 6.4 (3-14) % Eos % (Auto) 2.6 (2-4) % Baso % (Auto) 0.4 (0-2) % Neut # (Auto) 2800 (3415-1226) /uL Lymph # (Auto) 1600 (4087-0971) /uL [place] # (Auto) 300 (0-900) /uL Eos # (Auto) 100 (0-450) /uL Baso # (Auto) 0 (0-100) /uL PT 12.8 H (9.4-12.5) SECONDS INR 1.1 (0.9-1.3) APTT 41 H (25.1-36.5) SECONDS Sodium 139 (137-145) mmol/L Potassium 3.9 (3.4-5.1) mmol/L Chloride 106 (98-107) mmol/L Carbon Dioxide 23 (22-32) mmol/L BUN 13 (7-17) mg/dL Creatinine 0.65 (0.52-1.04) mg/dL Estimated GFR > 60 (>60) mL/min BUN/Creatinine Ratio 20.0 (6-22) Glucose 96 (70-100) mg/dL Calcium 9.7 (8.4-10.2) mg/dL Magnesium 1.8 (1.6-2.3) mg/dL Total Bilirubin 1.0 (0.2-1.3) mg/dL AST 27 (14-36) IU/L ALT 17 (<35) IU/L Alkaline Phosphatase 51 (38-126) U/L Total Creatine Kinase 39 (30-135) U/L Troponin I < 0.012 (0.01-0.034) ng/mL NT-Pro-B Natriuret Pep 52 (<125) pg/mL Total Protein 7.6 (6.3-8.2) g/dL Albumin 4.8 (3.5-5.0) g/dL Globulin 2.8 (1.7-4.1) g/dL Albumin/Globulin Ratio 1.7 (1.0-2.8) Lipase 65 (23-300) U/L TSH 0.150 L (0.47-4.68) uIU/mL Free T4 1.45 (0.78-2.19) ng/dL Urine RBC 0-1/hpf (0-5/HPF) Urine WBC 1-5/hpf (0-5/HPF) Ur Squamous Epith Cells 1-5 /hpf (0-5/HPF) Urine Bacteria Occasional (0-1) (None) Urine Mucus 3+ H (Negative) Vol Urine Centrifuged 10ml (spun) Point of Care Testing Test Results Negative Urine Dip Bedside Urine Glucose Negative Bedside Urine Bilirubin - Negative Bedside Urine Ketone - Negative Urine Specific [place] 1.025 Bedside Urine Occult Blood - Negative Bedside Urine pH 6.0 Bedside Urine Protein +/- 15 Bedside Urine Urobilinogen - Negative Bedside Urine Nitrite - Negative Bedside Urine Leukocytes - Negative Esterase ECG Data Attestation: I personally reviewed and interpreted this ECG as follows: Prior ECG tracings: available for review Interpretation: EKG shows sinus rhythm with sinus arrhythmia rate of 66 ND 136 QRS 88 QTC of [address] elevation or depression. Patient has prior from 01/09/2024 appears similar. MDM Narrative Medical decision making narrative: Labs show normal white count, hemoglobin and platelets. INR is 1.1, electrolytes are otherwise appropriate BUN creatinine are appropriate, potassium 3.9, calcium is 9.7 LFTs are negative troponins less than 0.012 with a lipase of 65. TSH is 0.150 with a free T4 of 1.45. Chest x-ray shows no acute change EKG shows sinus rhythm with sinus arrhythmia rate of 66 ND 136 QRS 88 QTC of [address] elevation or depression. Point of care is negative, point of care urine shows protein. 24-year-old female with history of Graves disease had thyroidectomy in February patient has had some persistent nausea particularly with food for the past month. In the last day or so has had some what she describes as her hyperthyroid symptoms. Lab workup overall is reassuring inappropriate discussed with patient some of her symptoms sound like she might have gastritis or ulcer would recommend a PPI in the short term but that she should chat with pharmacy to see about spacing it out from her thyroid medication. She did request a prescription for some ondansetron. Would also recommend that she follow up with primary care and/or endocrinology for rechecked and follow up with General surgery or GI for upper EGD. Patient notes she was had pretty difficult time getting follow up with primary care and Endocrinology we will give options for alternatives. Discharge Plan Departure Patient Disposition: Home Clinical Impression: Nausea Instructions: DI for Nausea -- Adult Activity Restrictions/Additional Instructions: Your nausea what sounds like it is more related to food could be secondary to gastritis or an ulcer I would recommend a PPI such as omeprazole once daily. This medication take some time to work but can be helpful usually takes several weeks to be effective. The way to fully evaluate this is to follow up for an EGD contacts included below to set this up. Prescription was sent for Zofran, can take 1 tablet every 6 hours as needed for nausea. Also prescription for Pepcid 40 mg daily this is also available [id number]. There is a card included for primary care physicians that are taking new patients if you are interested. If you are looking for an production line the but closest to through [facility]. The number is [phone]. Please return for severe pain, fevers, new chest pain or shortness of breath, vomiting, passing out, black or bloody stools or other new or concerning changes. Prescriptions: New famotidine [Pepcid] 40 mg tablet 40 mg PO DAILY Qty: 30 0RF ondansetron 4 mg tablet,disintegrating 4 mg PO Q6H PRN (Reason: nausea and vomiting) Qty: 10 0RF Referrals: Estuardo Orozco MD [Physician] - Jack Francisco DO [Non-Staff] - Stand Alone Forms: Patient Portal/API/Survey
== END 2024-08-24 15:39 | disposition home or self-care (01) ==
PROVIDERS: Emergency Provider Emergency Medicine
DX: R11.0 Nausea (principal); R10.13 Epigastric pain; R42 Dizziness and giddiness; R51.9 Headache, unspecified; E89.0 Postprocedural hypothyroidism
CPT/HCPCS: 36415; 71045; 80053; 81003; 81015; 81025; 82550; 83690; 83735; 83880; 84439; 84443; 84484; 85025; 85610; 85730; 87086; 93005; 96374; 99284; J2405